=== PATIENT | male | born 1985 ===

== ENCOUNTER 2022-09-06 05:00 | Emergency (ER) ==
[2022-09-06] MEDS ORDERED: Enoxaparin 150 MG/1 ML Syringe SUBCUT ONE (05:30)
[2022-09-06] MEDS ORDERED: Labetalol 100 MG/20 ML MDV IV ONE (05:30)
== END 2022-09-08 08:30 ==
LOC: MW.ED 05:00
DX: I21.4 Non-ST elevation (NSTEMI) myocardial infarction (principal); I10 Essential (primary) hypertension
CPT/HCPCS: 71045; 96372; 96374; 99285; J1650; J3490